=== PATIENT | female | born 1965 | race Caucasian/White ===

== ENCOUNTER 2016-05-19 14:19 | Emergency (ER) | payer SELFPAY ==
[2016-05-19 14:32] VITALS: TEMP 98.3
[2016-05-19] MEDS ORDERED: IPRATROPIUM/ALBUTEROL 3 ML VIAL NEB ONE (14:37)
--- NOTE | 2016-05-19 14:41 | ED.PDOC ---
History of Present Illness - General Chief Complaint: Respiratory Problem Stated Complaint: cough, sob Time Seen by Provider: 05/19/16 14:29 Source: patient, RN notes reviewed, Vital Signs reviewed Exam Limitations: no limitations - History of Present Illness Initial Comments: Patient comes in with 2 days history of cough and worsening SOB. She has underlying SOB due to L lung removal due to cancer but it has worsened over the past 2 days. Feeling some tightness in her chest. Timing/Duration: 24 hours Severity: moderate Activities at Onset: activity Possible Cause: frequent episodes, illness exposure Improving Factors: medication, rest Worsening Factors: movement Associated Symptoms: cough, other - chills Respiratory Risk Factors: no cause identified Allergies/Adverse Reactions: Allergies Gabapentin [From Neurontin] Allergy (Verified 05/19/16 14:32) Rash Home Medications: Ambulatory Orders Albuterol Inhaler [Ventolin Hfa Inhaler] 1 puff INH Q6H PRN 11/12/15 Alprazolam [Xanax] 1 mg PO TID PRN 11/12/15 Aspirin [Aspirin Adult Low Dose] 81 mg PO DAILY 11/12/15 Citalopram Hydrobromide 40 mg PO DAILY 11/12/15 Furosemide [Lasix] 20 mg PO QAM #30 tab 11/12/15 Lisinopril 2.5 mg PO DAILY 11/12/15 Promethazine Tab [Phenergan Tablet] 25 mg PO .Q4H PRN #0 11/12/15 metFORMIN HCL [Glucophage] 250 mg PO BID 11/12/15 Acetaminophen [Tylenol] 500 mg PO .Q6H PRN #60 tab 03/16/16 Dextromethorphan-Guaifenesin [Mucinex Dm Maximum Streng 60-1200 mg] 1 tab PO ACHS #30 tab 03/16/16 Azithromycin [Zithromax Z-Titus] 1 ea PO DAILY #1 pack 05/19/16 Ipratropium/Albuterol [Duoneb] 3 ml NEB Q4HR PRN #25 vial 05/19/16 Prednisone 10 mg PO DAILY #30 titus 05/19/16 Review of Systems - Review of Systems Constitutional: States: chills. Denies: fever, malaise, weakness EENTM: States: no symptoms reported. Denies: ear pain, nose congestion, throat pain Respiratory: States: cough, short of breath, other - LY[facility] Cardiology: States: chest pain - Tightness. Denies: palpitations, syncope Gastrointestinal/Abdominal: States: no symptoms reported Genitourinary: States: no symptoms reported Musculoskeletal: States: muscle pain Skin: States: no symptoms reported Neurological: States: no symptoms reported. Denies: headache Endocrine: States: no symptoms reported Hematologic/Lymphatic: States: no symptoms reported Past Medical History (General) - Patient Medical History Hx Seizures: No Hx Stroke: No Hx Dementia: No Hx Asthma: No Hx of COPD: No Hx Cardiac Disorders: No Hx Congestive Heart Failure: No Hx Pacemaker: No Hx Hypertension: Yes Hx Thyroid Disease: No Hx Diabetes: Yes Hx Gastroesophageal Reflux: No Hx Renal Disease: No Hx Cancer: Yes - lung CA Hx of HIV: No Hx MRSA: No Surgical History: other - Vaccination History Hx Tetanus, Diphtheria Vaccination: Yes Hx Influenza Vaccination: No Hx Pneumococcal Vaccination: Yes - 01/2015 - Social History Hx Tobacco Use: Yes Hx Alcohol Use: No Hx Substance Use: No Hx Substance Use Treatment: No Hx Depression: No - Activities of Daily Living Hospice Agency (if applicable):: None - Female History Patient is a Female of Child Bearing Age (10 -59 yrs old): No Patient : No Family Medical History - Family History Mother Family History: No Known Living Status: Still Living Hx Family Hypertension: Yes Hx Cardiac Disease: Yes Hx Family Cancer: Yes - rectal Physical Exam - Physical Exam General Appearance: Alert, Comfortable, No apparent distress, Well Developed, Well Groomed, Well Hydrated, Well Nourished Neck: non-tender, full range of motion, supple, normal inspection Respiratory: chest non-tender, no respiratory distress, no accessory muscle use , decreased breath sounds - at bases but otherwise CTA Cardiovascular/Chest: regular rate, rhythm, no edema, no gallop, no JVD, no murmur Extremity: normal range of motion, non-tender, normal inspection, no pedal edema Neurologic: no motor/sensory deficits, alert, normal mood/affect, oriented x 3 Skin Exam: normal color, warm/dry Lymphatic: no adenopathy Progress - Progress Progress: 05/19/16 15:08 Feeling better after neb treatment. 05/19/16 15:31 Discussed lab and x-ray results. Discussed that most of the time bronchitis is viral and does not require antibiotics. Discussed will give script if new or worsening symptoms occur given that she is a smoker. - Results/Orders Results/Orders: Influenza A & B are negative. - EKG/XRAY/CT XRAY: chest - Stable, no acute changes per Radiologist Departure - Departure Clinical Impression: Bronchitis Time of Disposition: 15:33 Disposition: Discharge to Home or Self Care Condition: Good Departure Forms: ED Discharge - Pt. Copy, Patient Portal Self Enrollment Instructions: DI for Acute Bronchitis Diet: resume usual diet Activity: increase activity as tolerated Prescriptions: Ipratropium/Albuterol [Duoneb] 3 ml NEB Q4HR PRN #25 vial PRN Reason: Shortness Of Breath Prednisone 10 mg PO DAILY #30 titus Azithromycin [Zithromax Z-Titus] 1 ea PO DAILY #1 pack Home Medications: Ambulatory Orders Albuterol Inhaler [Ventolin Hfa Inhaler] 1 puff INH Q6H PRN 11/12/15 Alprazolam [Xanax] 1 mg PO TID PRN 11/12/15 Aspirin [Aspirin Adult Low Dose] 81 mg PO DAILY 11/12/15 Citalopram Hydrobromide 40 mg PO DAILY 11/12/15 Furosemide [Lasix] 20 mg PO QAM #30 tab 11/12/15 Lisinopril 2.5 mg PO DAILY 11/12/15 Promethazine Tab [Phenergan Tablet] 25 mg PO .Q4H PRN #0 11/12/15 metFORMIN HCL [Glucophage] 250 mg PO BID 11/12/15 Acetaminophen [Tylenol] 500 mg PO .Q6H PRN #60 tab 03/16/16 Dextromethorphan-Guaifenesin [Mucinex Dm Maximum Streng 60-1200 mg] 1 tab PO ACHS #30 tab 03/16/16 Azithromycin [Zithromax Z-Titus] 1 ea PO DAILY #1 pack 05/19/16 Ipratropium/Albuterol [Duoneb] 3 ml NEB Q4HR PRN #25 vial 05/19/16 Prednisone 10 mg PO DAILY #30 titus 05/19/16
--- NOTE | 2016-05-19 15:14 | RAD ---
EXAM DESCRIPTION: Chest,2 Views CLINICAL HISTORY: 51 years Female, cough/SOB HX L lung removal COMPARISON: November 12, 2015 FINDINGS: Two view chest x-ray shows evidence of left pneumonectomy with complete opacification of the left hemithorax stable from previous exam. There is hyperinflation of the right lung. No acute infiltrate or consolidation is seen. No pleural effusion is identified. Left subclavian Mediport is again seen in good positioning. IMPRESSION: Stable chest x-ray in patient with history of left pneumonectomy. 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
[2016-05-19] MEDS ORDERED: methylPREDNISolone SODIUM SUC 125 MG/2 ML VIAL IM ONE (15:26)
[2016-05-19 15:54] VITALS: BP 106/72; O2SAT 97
== END 2016-05-19 15:54 | disposition home or self-care (01) ==
LOC: ER 14:19
DX: J40 Bronchitis, not specified as acute or chronic (principal); I10 Essential (primary) hypertension; E11.9 Type 2 diabetes mellitus without complications; Z88.8 Allergy status to other drugs, medicaments and biological substances; Z79.82 Long term (current) use of aspirin; Z79.899 Other long term (current) drug therapy; Z87.891 Personal history of nicotine dependence
CPT/HCPCS: 71020; 87502; 94640; J2930; J7620

== ENCOUNTER 2016-08-11 20:16 | Emergency (ER) | payer SELFPAY ==
[2016-08-11 20:47] VITALS: TEMP 99
--- NOTE | 2016-08-11 20:48 | ED.PDOC ---
History of Present Illness - General Stated Complaint: left neck and arm pain Time Seen by Provider: 08/11/16 20:32 Source: patient Exam Limitations: no limitations - History of Present Illness Initial Comments: Patient is NIDDM, s/p left pulminectomy due to lung CA ( last chemo one year ago ), hyperlipidemia who presents with left neck, arm, and hand pain. The neck and arm pain have been going on for about one month and the hand pain is more recent , however, in the last two days she says that she "can't stand it anymore". The pain is diffusely around the hand and she claims to not be able to move it. She took a tylenol 3 yesterday. Patient's family has an extensive cardiac history. Timing/Duration: changing over time, other - one month Severity: moderate Improving Factors: nothing Worsening Factors: nothing Associated Symptoms: denies symptoms Allergies/Adverse Reactions: Allergies Gabapentin [From Neurontin] Allergy (Verified 08/11/16 20:47) Rash Home Medications: Ambulatory Orders Albuterol Inhaler [Ventolin Hfa Inhaler] 1 puff INH Q6H PRN 11/12/15 Alprazolam [Xanax] 1 mg PO TID PRN 11/12/15 Aspirin [Aspirin Adult Low Dose] 81 mg PO DAILY 11/12/15 Citalopram Hydrobromide 40 mg PO DAILY 11/12/15 Furosemide [Lasix] 20 mg PO QAM #30 tab 11/12/15 Lisinopril 2.5 mg PO DAILY 11/12/15 Promethazine Tab [Phenergan Tablet] 25 mg PO .Q4H PRN #0 11/12/15 metFORMIN HCL [Glucophage] 250 mg PO BID 11/12/15 Acetaminophen [Tylenol] 500 mg PO .Q6H PRN #60 tab 03/16/16 Dextromethorphan-Guaifenesin [Mucinex Dm Maximum Streng 60-1200 mg] 1 tab PO ACHS #30 tab 03/16/16 Azithromycin [Zithromax Z-Titus] 1 ea PO DAILY #1 pack 05/19/16 Ipratropium/Albuterol [Duoneb] 3 ml NEB Q4HR PRN #25 vial 05/19/16 Prednisone 10 mg PO DAILY #30 titus 05/19/16 Cyclobenzaprine HCl [Flexeril] 5 mg PO TID #20 tab 08/11/16 Review of Systems - Review of Systems Constitutional: States: no symptoms reported EENTM: States: no symptoms reported Respiratory: States: see HPI Cardiology: States: no symptoms reported Gastrointestinal/Abdominal: States: no symptoms reported Genitourinary: States: no symptoms reported Musculoskeletal: States: see HPI Skin: States: no symptoms reported Neurological: States: see HPI Endocrine: States: see HPI Hematologic/Lymphatic: States: no symptoms reported Past Medical History (General) - Patient Medical History Hx Seizures: No Hx Stroke: No Hx Dementia: No Hx Asthma: No Hx of COPD: No Hx Cardiac Disorders: No Hx Congestive Heart Failure: No Hx Pacemaker: No Hx Hypertension: Yes Hx Thyroid Disease: No Hx Diabetes: Yes Hx Gastroesophageal Reflux: No Hx Renal Disease: No Hx Cancer: Yes - lung CA Hx of HIV: No Hx MRSA: No - Vaccination History Hx Tetanus, Diphtheria Vaccination: Yes Hx Influenza Vaccination: No Hx Pneumococcal Vaccination: Yes - 01/2015 - Social History Hx Tobacco Use: Yes Hx Alcohol Use: No Hx Substance Use: No Hx Substance Use Treatment: No Hx Depression: No - Female History Patient : No Family Medical History - Family History Mother Family History: No Known Living Status: Still Living Hx Family Hypertension: Yes Hx Cardiac Disease: Yes Hx Family Cancer: Yes - rectal Physical Exam - Physical Exam General Appearance: Alert Eye Exam: bilateral normal Ears, Nose, Throat: normal ENT inspection Neck: non-tender, full range of motion, supple Respiratory: normal breath sounds, other - absent left lung Cardiovascular/Chest: regular rate, rhythm Gastrointestinal/Abdominal: normal bowel sounds, non tender, soft Extremity: normal range of motion, non-tender 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 No LBBB. Cardiac enzymes negative. Patient given flexeril 10 mg po x one and an RX for #20. Referral number for neurology given. Departure - Departure Clinical Impression: Neck sprain Disposition: Discharge to Home or Self Care Condition: Good Diet: other - as per your regular doctor Activity: increase activity as tolerated Referrals: Jessica Ramos NP [Primary Care Provider] - 1-2 Weeks Prescriptions: Cyclobenzaprine HCl [Flexeril] 5 mg PO TID #20 tab Home Medications: Ambulatory Orders Albuterol Inhaler [Ventolin Hfa Inhaler] 1 puff INH Q6H PRN 11/12/15 Alprazolam [Xanax] 1 mg PO TID PRN 11/12/15 Aspirin [Aspirin Adult Low Dose] 81 mg PO DAILY 11/12/15 Citalopram Hydrobromide 40 mg PO DAILY 11/12/15 Furosemide [Lasix] 20 mg PO QAM #30 tab 11/12/15 Lisinopril 2.5 mg PO DAILY 11/12/15 Promethazine Tab [Phenergan Tablet] 25 mg PO .Q4H PRN #0 11/12/15 metFORMIN HCL [Glucophage] 250 mg PO BID 11/12/15 Acetaminophen [Tylenol] 500 mg PO .Q6H PRN #60 tab 03/16/16 Dextromethorphan-Guaifenesin [Mucinex Dm Maximum Streng 60-1200 mg] 1 tab PO ACHS #30 tab 03/16/16 Azithromycin [Zithromax Z-Titus] 1 ea PO DAILY #1 pack 05/19/16 Ipratropium/Albuterol [Duoneb] 3 ml NEB Q4HR PRN #25 vial 05/19/16 Prednisone 10 mg PO DAILY #30 titus 05/19/16 Cyclobenzaprine HCl [Flexeril] 5 mg PO TID #20 tab 08/11/16 Additional Instructions: Follow up with neurology regarding the left arm pain.
[2016-08-11] MEDS ORDERED: CYCLOBENZAPRINE HCL 10 MG TAB PO ONE (21:17)
[2016-08-11 21:18] VITALS: O2SAT 100
[2016-08-11] MEDS ORDERED: CYCLOBENZAPRINE HCL 10 MG TAB ONE (21:18)
--- NOTE | 2016-08-11 21:19 | RAD ---
EXAM DESCRIPTION: Chest,1 View CLINICAL HISTORY: 51 years Female left sided pain COMPARISON: 05/19/2016. FINDINGS: The heart and mediastinum are shifted into the left hemithorax consistent with changes from previous pneumonectomy. This appears similar compared to the previous study. There is hyperinflation of the right lung again visualized. No definite consolidating infiltrate or pleural effusion. No pneumothorax. There is a stable left chest port. IMPRESSION: Shift of the heart and mediastinum into the left chest consistent with changes from previous pneumonectomy. No acute abnormality is identified. Electronically signed by: Shayan Chinchilla MD 08/11/2016 9:18 PM CDT
[2016-08-11 21:24] VITALS: BP 156/89
== END 2016-08-11 21:24 | disposition home or self-care (01) ==
LOC: ER 20:16
DX: S13.9XXA Sprain of joints and ligaments of unspecified parts of neck, initial encounter (principal); E78.5 Hyperlipidemia, unspecified; I10 Essential (primary) hypertension; E11.9 Type 2 diabetes mellitus without complications; Z88.8 Allergy status to other drugs, medicaments and biological substances; Z85.118 Personal history of other malignant neoplasm of bronchus and lung; Z79.82 Long term (current) use of aspirin; Z87.891 Personal history of nicotine dependence; Z79.899 Other long term (current) drug therapy; X58.XXXA Exposure to other specified factors, initial encounter

== ENCOUNTER 2016-09-10 15:44 | Emergency (ER) | payer SELFPAY ==
--- NOTE | 2016-09-10 16:03 | ED.PDOC ---
History of Present Illness - General Chief Complaint: Abdominal Pain Stated Complaint: abdominal pain Time Seen by Provider: 09/10/16 15:49 Information Source: patient, RN notes reviewed, Vital Signs reviewed Exam Limitations: no limitations - History of Present Illness Initial Comments: Patient presents to the ER with sharp LLQ pain that is worse with coughing and movement. She had 2 days of diarrhea with nausea and low grade fever, 100 degrees. That resolved yesterday but then the abdominal pain started. No urinary symptoms. Abdominal Pain Onset Location: LLQ Pain Radiation: no radiation Quality: moderate, stabbing Timing/Duration: 24 hours Improving Factors: nothing Worsening Factors: movement Associated Symptoms: diarrhea, fever/chills, nausea/vomiting Review of Systems - Review of Systems Constitutional: States: chills, fever - 100.0, malaise EENTM: States: no symptoms reported Respiratory: States: no symptoms reported Cardiology: States: no symptoms reported Gastrointestinal/Abdominal: States: see HPI, abdominal pain - LLQ, diarrhea, nausea. Denies: constipation, vomiting Genitourinary: States: no symptoms reported. Denies: discharge, dysuria, frequency, pain Musculoskeletal: States: no symptoms reported Skin: States: no symptoms reported Neurological: States: no symptoms reported Endocrine: States: no symptoms reported Hematologic/Lymphatic: States: no symptoms reported Past Medical History (General) - Patient Medical History Hx Seizures: No Hx Stroke: No Hx Dementia: No Hx Asthma: No Hx of COPD: No Hx Cardiac Disorders: No Hx Congestive Heart Failure: No Hx Pacemaker: No Hx Hypertension: Yes Hx Thyroid Disease: No Hx Diabetes: Yes Hx Gastroesophageal Reflux: No Hx Renal Disease: No Hx Cancer: Yes - lung CA Hx of HIV: No Hx Hepatitis C: No Hx MRSA: No - Vaccination History Hx Tetanus, Diphtheria Vaccination: Yes Hx Influenza Vaccination: No Hx Pneumococcal Vaccination: Yes - 01/2015 - Social History Hx Tobacco Use: Yes Hx Chewing Tobacco Use: No Hx Alcohol Use: No Hx Substance Use: No Hx Substance Use Treatment: No Hx Depression: No Hx Physical Abuse: No Hx Emotional Abuse: No Hx Suspected Abuse: No - Female History Patient : No Family Medical History - Family History Mother Family History: No Known Living Status: Still Living Hx Family Hypertension: Yes Hx Cardiac Disease: Yes Hx Family Cancer: Yes - rectal Physical Exam - Physical Exam General Appearance: Alert, Comfortable, No apparent distress, Well Developed, Well Groomed, Well Hydrated, Well Nourished Respiratory: chest non-tender, lungs clear, normal breath sounds, no respiratory distress, no accessory muscle use Cardiovascular/Chest: regular rate, rhythm, no gallop, no JVD, no murmur Gastrointestinal/Abdominal: normal bowel sounds, soft, no organomegaly, no pulsatile mass, rebound - LLQ, tenderness - LLQ Extremity: normal range of motion, non-tender, normal inspection Neurologic: alert, normal mood/affect, oriented x 3 Skin Exam: normal color, warm/dry Comments: Vital Signs - 24 hr 09/10/16 15:55 Temperature 98.7 F Pulse Rate [ 86 right brachial] Respiratory 86 H Rate Blood Pressure 118/78 [right brachial ] O2 Sat by Pulse 97 Oximetry Progress - Results/Orders Results/Orders: Laboratory Tests 09/10/16 09/10/16 16:15 16:15 WBC 7.3 RBC 4.50 Hgb 14.5 Hct 41.2 MCV 91.4 MCH 32.2 H MCHC 35.2 RDW 13.4 Plt Count 254 MPV 7.4 Absolute Neuts (auto) 5.30 Absolute Lymphs (auto) 0.90 L Absolute Monos (auto) 0.80 Absolute Eos (auto) 0.10 Absolute Basos (auto) 0.00 Neutrophils % 73.2 Lymphocytes % 12.6 L Monocytes % 11.6 H Eosinophils % 1.9 Basophils % 0.7 Sodium 128 L Potassium 3.9 Chloride 93 L Carbon Dioxide 25 Anion Gap 13.9 BUN 9 Creatinine 0.73 BUN/Creatinine Ratio 12.3 Random Glucose 97 Serum Osmolality 255.7 L Calcium 9.4 Total Bilirubin 0.4 AST 12 ALT 12 Alkaline Phosphatase 96 Serum Total Protein 7.7 Albumin 4.4 Globulin 3.3 Albumin/Globulin Ratio 1.3 - EKG/XRAY/CT CT Ordered: Yes - nondilated, fluid filled loops of R small bowel & R colon - enterocolitis CT Interpretation Call Back: No - No inflammation or bowel wall thickening. Departure - Departure Clinical Impression: Gastroenteritis, Diarrhea Time of Disposition: 17:35 Disposition: Discharge to Home or Self Care Condition: Good Departure Forms: ED Discharge - Pt. Copy, Patient Portal Self Enrollment Instructions: DI for Viral Gastroenteritis -- Adult Diet: resume usual diet Activity: increase activity as tolerated Referrals: Jessica Ramos NP [Primary Care Provider] - 1-2 Weeks Home Medications: Ambulatory Orders Albuterol Inhaler [Ventolin Hfa Inhaler] 1 puff INH Q6H PRN 11/12/15 Alprazolam [Xanax] 1 mg PO TID PRN 11/12/15 Aspirin [Aspirin Adult Low Dose] 81 mg PO DAILY 11/12/15 Citalopram Hydrobromide 40 mg PO DAILY 11/12/15 Furosemide [Lasix] 20 mg PO QAM #30 tab 11/12/15 Lisinopril 2.5 mg PO DAILY 11/12/15 Promethazine Tab [Phenergan Tablet] 25 mg PO .Q4H PRN #0 11/12/15 metFORMIN HCL [Glucophage] 250 mg PO BID 11/12/15 Acetaminophen [Tylenol] 500 mg PO .Q6H PRN #60 tab 03/16/16 Dextromethorphan-Guaifenesin [Mucinex Dm Maximum Streng 60-1200 mg] 1 tab PO ACHS #30 tab 03/16/16 Azithromycin [Zithromax Z-Titus] 1 ea PO DAILY #1 pack 05/19/16 Ipratropium/Albuterol [Duoneb] 3 ml NEB Q4HR PRN #25 vial 05/19/16 Prednisone 10 mg PO DAILY #30 titus 05/19/16 Cyclobenzaprine HCl [Flexeril] 5 mg PO TID #20 tab 08/11/16
[2016-09-10 16:10] VITALS: TEMP 98.7
[2016-09-10] MEDS ORDERED: SODIUM CHLORIDE 0.9% 1000ML 1,000 ML IVS ONE (16:47)
--- NOTE | 2016-09-10 16:54 | CT ---
EXAM DESCRIPTION: CT ABDOMEN AND PELVIS WITH CONTRAST CLINICAL HISTORY: LLQ pain/diarrhea COMPARISON: None Available. TECHNIQUE: CT of the abdomen and pelvis was performed using nonionic contrast without oral contrast enhancement. MPR reformatted images were obtained. This exam was performed according to our departmental dose-optimization program, which includes automated exposure control, adjustment of the mA and/or kV according to patient size and/or use of iterative reconstruction technique. FINDINGS: Right lung base appears hyperexpanded but clear and the heart is shifted into the left lower hemithorax with what appears to be a small amount of pleural fluid suggesting previous left pneumonectomy or lobectomy. The liver is normal in size shape and appearance without focal abnormality in the spleen is upper normal in size and normal in appearance. The adrenal glands are unremarkable and the gallbladder is normally distended without ductal dilation. Within the neck of the gallbladder there are two small areas of curvilinear calcification both of which appear to be within the wall of the gallbladder rather than representing small stones. No ductal dilation is evident. Pancreas is normal in appearance. At the lung bases the esophagus appears to track into the left posterior chest, again consistent with a prior left pneumonectomy or lobectomy. Right kidney is unremarkable without mass cyst or obstruction or stone disease. There is a small subcentimeter cyst in the upper pole of the left kidney medially with an otherwise normal-appearing left kidney as well aortic calcification without aneurysm is present without significant mesenteric or retroperitoneal adenopathy. No evidence of bowel obstruction is noted. Fluid-filled loops of distal small bowel and to some degree involving the right colon suggests an element of enterocolitis but without marked bowel wall thickening. Within the pelvis the uterus is surgically absent and no adnexal mass is seen. The descending colon is decompressed with an air-filled loop of mid sigmoid colon anteriorly that is nonspecific with a small amount of gas and stool noted in the distal rectum. The cecum and ileocecal valve are identified but the appendix is not identified but a definite inflammatory process in the right lower quadrant or left lower quadrant or evidence of perforation is not apparent. The anterior abdominal wall is unremarkable. Mild degenerative changes in the spine and pelvis are noted without destructive changes. IMPRESSION: 1. Abnormal left lung base with shift of the heart mediastinum into the left chest suggesting prior left pneumonectomy or lobectomy with a small amount of left pleural fluid. 2. Small amount of curvilinear calcification associated with the gallbladder neck that appears to be within the wall and not within the lumen. Gallstones are not completely excluded but thought unlikely with this appearance. No ductal dilatation or acute changes of cholecystitis noted 3. Fluid-filled nondilated loops of distal small bowel and right colon consistent with the history of diarrhea and possibly an enterocolitis. Bowel wall thickening or perforation or mesenteric inflammatory changes are not apparent Electronically signed by: Poli Bess MD 09/10/2016 4:54 PM CDT
[2016-09-10 17:17] VITALS: O2SAT 96
[2016-09-10 17:42] VITALS: BP 122/74
[2016-09-10] MEDS ORDERED: LIDOCAINE VIS-MYLANTA 30 ML UD PO ONE (17:49)
== END 2016-09-10 17:44 | disposition home or self-care (01) ==
LOC: ER 15:44
DX: K52.9 Noninfective gastroenteritis and colitis, unspecified (principal); I10 Essential (primary) hypertension; E11.9 Type 2 diabetes mellitus without complications; Z85.118 Personal history of other malignant neoplasm of bronchus and lung; Z79.899 Other long term (current) drug therapy; Z79.82 Long term (current) use of aspirin
CPT/HCPCS: 36415; 74177; 80053; 81001; 85025; J7030

== ENCOUNTER → 2016-09-26 | Outpatient (CLI) | payer MEDICARE | END | disposition home or self-care (01) | LOC: YCFC.O 14:23 | PROVIDERS: ATTEND Nurse Practitioner Family | DX: E78.2 Mixed hyperlipidemia (principal); E11.9 Type 2 diabetes mellitus without complications ==

== ENCOUNTER 2017-03-08 19:52 | Emergency (ER) | payer MEDICARE ==
[2017-03-08 20:10] VITALS: TEMP 99.7
[2017-03-08] MEDS ORDERED: ACETAMINOPHEN 325 MG TAB PO ONE (20:55)
[2017-03-08] MEDS ORDERED: IBUPROFEN 200 MG TAB PO ONE (20:55)
--- NOTE | 2017-03-08 20:59 | ED.PDOC ---
History of Present Illness - General Chief Complaint: ENT Problem Stated Complaint: sore throat, cough, sinus pressure, headache Time Seen by Provider: 03/08/17 20:04 Source: patient Exam Limitations: no limitations - History of Present Illness Initial Comments: the patient is a 51-year-old female presenting to the emergency room secondary to 24 hours of symptoms of sore throat along with a cough and some runny nose and a mild headache. She has had a lung resection in the past due to cancer and she does have some reactive airway disease. She is oxygenating well and in no acute distress. She is alert and oriented. She is eating well. Tympanic membranes are clear. Nares are reddened with clear rhinorrhea. Posterior oropharynx is red. No exudates. She is clear to auscultation bilaterally. Timing/Duration: 24 hours Severity: moderate Improving Factors: nothing Worsening Factors: nothing Associated Symptoms: cough, fever/chills, malaise Allergies/Adverse Reactions: Allergies Gabapentin [From Neurontin] Allergy (Verified 03/08/17 20:36) Rash Home Medications: Ambulatory Orders Aspirin [Aspirin Adult Low Dose] 81 mg PO DAILY 11/12/15 Citalopram Hydrobromide 40 mg PO DAILY 11/12/15 Lisinopril 2.5 mg PO DAILY 11/12/15 metFORMIN HCL [Glucophage] 250 mg PO BID 11/12/15 Hydrochlorothiazide 12.5 mg PO DAILY 09/10/16 Loratadine 10 mg PO DAILY PRN 09/10/16 Amitriptyline HCl [Elavil] 25 mg PO BEDTIME 03/08/17 Cyclobenzaprine HCl [Flexeril] 5 mg PO TID PRN 03/08/17 Lovastatin 20 mg PO DAILY 03/08/17 Review of Systems - Review of Systems Constitutional: States: fever, malaise EENTM: States: nose congestion, throat pain Respiratory: States: cough Cardiology: States: no symptoms reported Gastrointestinal/Abdominal: States: no symptoms reported Genitourinary: States: no symptoms reported Musculoskeletal: States: no symptoms reported Skin: States: no symptoms reported Neurological: States: no symptoms reported Endocrine: States: no symptoms reported All other Systems: No Change from Baseline Past Medical History (General) - Patient Medical History Hx Seizures: No Hx Stroke: No Hx Dementia: No Hx Asthma: No Hx of COPD: No Hx Cardiac Disorders: No Hx Congestive Heart Failure: No Hx Pacemaker: No Hx Hypertension: Yes Hx Thyroid Disease: No Hx Diabetes: Yes Hx Gastroesophageal Reflux: Yes Hx Renal Disease: No Hx Cancer: Yes - lung CA Hx of HIV: No Hx Hepatitis C: No Hx MRSA: No Surgical History: appendectomy, cancer surgery, Hysterectomy - Vaccination History Hx Tetanus, Diphtheria Vaccination: Yes Hx Influenza Vaccination: No Hx Pneumococcal Vaccination: Yes - 01/2015 - Social History Hx Tobacco Use: Yes Hx Chewing Tobacco Use: No Hx Alcohol Use: No Hx Substance Use: No Hx Substance Use Treatment: No Hx Depression: No Hx Physical Abuse: No Hx Emotional Abuse: No Hx Suspected Abuse: No - Female History Patient : No Family Medical History - Family History Mother Family History: No Known Living Status: Still Living Hx Family Hypertension: Yes Hx Cardiac Disease: Yes Hx Family Cancer: Yes - rectal Physical Exam - Physical Exam General Appearance: Alert, Comfortable, No apparent distress Eye Exam: bilateral normal Ears, Nose, Throat: hearing grossly normal, nasal congestion, pharyngeal erythema Neck: full range of motion, supple Respiratory: other - normal breath sounds on the right, decreased on the left due to lung resection Cardiovascular/Chest: normal peripheral pulses, regular rate, rhythm, no edema Peripheral Pulses: radial,right: 2+, radial,left: 2+, dorsalis pedis,right: 2+, dorsalis pedis,left: 2+ Gastrointestinal/Abdominal: non tender, soft Rectal Exam: deferred Back Exam: no CVA tenderness Extremity: non-tender, normal inspection, no pedal edema, normal capillary refill 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 She has tested negative for strep and flu. She needs to keep well-hydrated. Motrin and Tylenol can be used to reduce symptoms. She should follow-up with her primary care doctor later this week given her history of a lung resection. ER warnings are given for any worsening. Continue as needed use of her nebulizer treatments. Departure - Departure Clinical Impression: Common cold Disposition: Discharge to Home or Self Care Condition: Fair Departure Forms: ED Discharge - Pt. Copy, Patient Portal Self Enrollment Instructions: DI for Common Cold Diet: regular diet Activity: increase activity as tolerated Referrals: Doretha Hodge, [employer] [Primary Care Provider] - 1-5 Days Home Medications: Ambulatory Orders Aspirin [Aspirin Adult Low Dose] 81 mg PO DAILY 11/12/15 Citalopram Hydrobromide 40 mg PO DAILY 11/12/15 Lisinopril 2.5 mg PO DAILY 11/12/15 metFORMIN HCL [Glucophage] 250 mg PO BID 11/12/15 Hydrochlorothiazide 12.5 mg PO DAILY 09/10/16 Loratadine 10 mg PO DAILY PRN 09/10/16 Amitriptyline HCl [Elavil] 25 mg PO BEDTIME 03/08/17 Cyclobenzaprine HCl [Flexeril] 5 mg PO TID PRN 03/08/17 Lovastatin 20 mg PO DAILY 03/08/17 Additional Instructions: the patient is a 51-year-old female presenting secondary to symptoms consistent with a common cold. She has tested negative for strep and flu. She needs to keep well-hydrated. Motrin and Tylenol can be used to reduce symptoms. She should follow-up with her primary care doctor later this week given her history of a lung resection. ER warnings are given for any worsening. Continue as needed use of her nebulizer treatments.
[2017-03-08 21:14] VITALS: BP 122/82; O2SAT 98
== END 2017-03-08 21:14 | disposition home or self-care (01) ==
LOC: ER 19:52
DX: J00 Acute nasopharyngitis [common cold] (principal); E11.9 Type 2 diabetes mellitus without complications; I10 Essential (primary) hypertension; Z85.118 Personal history of other malignant neoplasm of bronchus and lung

== ENCOUNTER → 2017-03-20 | Outpatient (CLI) | payer MEDICARE ==
--- NOTE | 2017-03-21 23:02 | RAD ---
Procedure: XR CHEST 2 VIEWS Exam Date: 03/20/2017 Ordering Provider: LUIS Hodge Clinical Indication: SOB Comparison: 08/11/2016 Findings: Left chest portacatheter with tip stable in position. Cardiomediastinal silhouette: Postsurgical changes of left pneumonectomy with leftward mediastinal shift, similar to prior. Focal lung consolidation: No focal lung consolidation. Pleural effusion: No significant pleural effusion. Pneumothorax: None Bones and soft tissues: Nonacute Impression: 1. No acute abnormalities in the chest. Electronically signed by: Angel Jerez MD 03/21/2017 11:00 PM [facility]
== END | disposition home or self-care (01) ==
LOC: YCFC.O 16:17
PROVIDERS: ATTEND Nurse Practitioner Family
DX: R06.02 Shortness of breath (principal)

== ENCOUNTER 2017-04-05 20:15 | Emergency (ER) | payer MEDICARE ==
--- NOTE | 2017-04-05 21:35 | ED.PDOC ---
History of Present Illness - General Chief Complaint: General Stated Complaint: Productive cough yellowish sputum rt ear ache Time Seen by Provider: 04/05/17 21:34 Source: patient Exam Limitations: no limitations - History of Present Illness Initial Comments: Tarah White 51 y/o female came to emergency room with dry cough for the last 1-2 weeks ,.She wqas prescribed antibiotics last week but stating not better cough continue to linger.No fever ,no chills,no sob Timing/Duration: 1 week Severity: moderate Improving Factors: nothing Worsening Factors: nothing Associated Symptoms: shortness of breath - during coughing episodes Allergies/Adverse Reactions: Allergies Gabapentin [From Neurontin] Allergy (Verified 04/05/17 20:56) Rash Home Medications: Ambulatory Orders Aspirin [Aspirin Adult Low Dose] 81 mg PO DAILY 11/12/15 Citalopram Hydrobromide 40 mg PO DAILY 11/12/15 Lisinopril 2.5 mg PO DAILY 11/12/15 metFORMIN HCL [Glucophage] 250 mg PO BID 11/12/15 Hydrochlorothiazide 12.5 mg PO DAILY 09/10/16 Loratadine 10 mg PO DAILY PRN 09/10/16 Amitriptyline HCl [Elavil] 25 mg PO BEDTIME 03/08/17 Cyclobenzaprine HCl [Flexeril] 5 mg PO TID PRN 03/08/17 Lovastatin 20 mg PO DAILY 03/08/17 Benzonatate Perles [Tessalon Perles] 200 mg PO TID #30 cap 04/05/17 Review of Systems - Review of Systems Constitutional: States: no symptoms reported EENTM: States: see HPI Respiratory: States: see HPI Cardiology: States: no symptoms reported Gastrointestinal/Abdominal: States: no symptoms reported Genitourinary: States: no symptoms reported Musculoskeletal: States: no symptoms reported Skin: States: no symptoms reported Neurological: States: no symptoms reported Past Medical History (General) - Patient Medical History Hx Seizures: No Hx Stroke: No Hx Dementia: No Hx Asthma: Yes Hx of COPD: No Hx Cardiac Disorders: No Hx Congestive Heart Failure: No Hx Pacemaker: No Hx Hypertension: Yes Hx Thyroid Disease: No Hx Diabetes: Yes Hx Gastroesophageal Reflux: Yes Hx Renal Disease: No Hx Cancer: Yes - vagina/lungs Hx of HIV: No Hx Hepatitis C: No Hx MRSA: No Surgical History: appendectomy, Hysterectomy, other - vulvectomy,lung resection - Vaccination History Hx Tetanus, Diphtheria Vaccination: Yes Hx Influenza Vaccination: No Hx Pneumococcal Vaccination: Yes - Social History Hx Tobacco Use: Yes Hx Chewing Tobacco Use: No Hx Alcohol Use: No Hx Substance Use: No Hx Substance Use Treatment: No Hx Depression: No Hx Physical Abuse: No Hx Emotional Abuse: No Hx Suspected Abuse: No - Female History Patient is a Female of Child Bearing Age (10 -59 yrs old): Yes - hystectomy Patient : No - Triage Comment ED Triage Comment: Presents to ER--POV--c/o PC with yellowish sputum states-- recent bronchilitis --Rt ear ache--onset yesterday. Family Medical History - Family History Mother Family History: No Known Living Status: Still Living Hx Family Hypertension: Yes Hx Cardiac Disease: Yes Hx Family Cancer: Yes - rectal Physical Exam - Physical Exam General Appearance: Alert, Comfortable, No apparent distress Eye Exam: bilateral normal Ears, Nose, Throat: hearing grossly normal, normal ENT inspection, normal pharynx Neck: non-tender, full range of motion, supple Respiratory: lungs clear, normal breath sounds, no respiratory distress Cardiovascular/Chest: normal peripheral pulses, regular rate, rhythm, no murmur Peripheral Pulses: radial,right: 2+, radial,left: 2+ Gastrointestinal/Abdominal: normal bowel sounds, non tender, soft, no organomegaly Back Exam: normal inspection, no vertebral tenderness Extremity: non-tender, no pedal edema, no calf tenderness Neurologic: alert, oriented x 3 Progress - Progress Progress: 04/05/17 22:25 Last Vital Signs Temp 97.9 F 04/05/17 20:56 Pulse 105 H 04/05/17 20:56 Resp 20 04/05/17 20:56 BP 105/70 04/05/17 20:56 Pulse Ox 96 04/05/17 20:56 - Results/Orders Results/Orders: Laboratory Tests 04/05/17 21:44 WBC 10.7 RBC 4.13 L Hgb 12.8 Hct 37.1 MCV 89.7 MCH 30.9 MCHC 34.6 RDW 14.5 Plt Count 299 MPV 7.0 L Absolute Neuts (auto) 8.30 H Absolute Lymphs (auto) 1.30 Absolute Monos (auto) 0.90 H Absolute Eos (auto) 0.10 Absolute Basos (auto) 0.10 Neutrophils % 77.4 Lymphocytes % 12.2 L Monocytes % 8.0 Eosinophils % 1.3 Basophils % 1.1 FLU A/B -negative - EKG/XRAY/CT XRAY: chest - no acute abnormalities Departure - Departure Clinical Impression: Viral upper respiratory tract infection with cough Time of Disposition: 22:27 Disposition: Discharge to Home or Self Care Condition: Good Departure Forms: ED Discharge - Pt. Copy, Patient Portal Self Enrollment Instructions: DI for Viral Upper Respiratory Infection -- Adult Referrals: Doretha Hodge, [employer] [Primary Care Provider] - 1-2 Weeks Prescriptions: Benzonatate Perles [Tessalon Perles] 200 mg PO TID #30 cap Home Medications: Ambulatory Orders Aspirin [Aspirin Adult Low Dose] 81 mg PO DAILY 11/12/15 Citalopram Hydrobromide 40 mg PO DAILY 11/12/15 Lisinopril 2.5 mg PO DAILY 11/12/15 metFORMIN HCL [Glucophage] 250 mg PO BID 11/12/15 Hydrochlorothiazide 12.5 mg PO DAILY 09/10/16 Loratadine 10 mg PO DAILY PRN 09/10/16 Amitriptyline HCl [Elavil] 25 mg PO BEDTIME 03/08/17 Cyclobenzaprine HCl [Flexeril] 5 mg PO TID PRN 03/08/17 Lovastatin 20 mg PO DAILY 03/08/17 Benzonatate Perles [Tessalon Perles] 200 mg PO TID #30 cap 04/05/17 Additional Instructions: May take over the counter Delsym lquid 2 teaspoons am/pm for cough;Benadryl 25 mg 2 capsules at bedtime
--- NOTE | 2017-04-05 22:10 | RAD ---
EXAM DESCRIPTION: Chest,2 Views CLINICAL HISTORY: cough COMPARISON: 03/20/2017 FINDINGS: Frontal and lateral views of the chest. Cardiac silhouette is not well evaluated due to diffuse left lung opacity. No definite cardiomegaly. Left subclavian Mediport. Unchanged complete opacification of the left hemithorax and leftward mediastinal shift compatible with prior pneumonectomy. Right lung is clear. No right-sided pneumothorax. No acute osseous abnormality. Upper abdominal soft tissues are unremarkable. IMPRESSION: 1. No acute pulmonary process identified. Electronically signed by: Tima White 04/05/2017 10:10 PM [facility]
[2017-04-05] MEDS ORDERED: diphenhydrAMINE HCL 25 MG CAP PO ONE (22:29)
[2017-04-05] MEDS ORDERED: BENZONATATE PERLES 100 MG CAP PO ONE (22:29)
[2017-04-05 22:46] VITALS: TEMP 98.9
[2017-04-05 22:53] VITALS: BP 132/78; O2SAT 98
== END 2017-04-05 22:45 | disposition home or self-care (01) ==
LOC: ER 20:15
DX: J06.9 Acute upper respiratory infection, unspecified (principal); Z87.891 Personal history of nicotine dependence; E11.9 Type 2 diabetes mellitus without complications; I10 Essential (primary) hypertension; Z85.89 Personal history of malignant neoplasm of other organs and systems; Z85.118 Personal history of other malignant neoplasm of bronchus and lung
CPT/HCPCS: 36415; 71046; 85025; 87502; Q0163

== ENCOUNTER 2018-01-23 16:18 | Emergency (ER) | payer MEDICARE ==
[2018-01-23] MEDS ORDERED: methylPREDNISolone SODIUM SUC 125 MG/2 ML VIAL IM ONE (16:28)
[2018-01-23 16:30] VITALS: BP 103/69; TEMP 98.3; O2SAT 97
--- NOTE | 2018-01-23 16:30 | ED.PDOC ---
History of Present Illness - General Chief Complaint: Respiratory Problem Stated Complaint: headache, sinus pressure Time Seen by Provider: 01/23/18 16:28 Source: patient Exam Limitations: no limitations - History of Present Illness Comments: patient comes in today with 4 day history of worsening sinus pressure, nasal congestion, and cough. Patient has a history of hypertension and the most likely underlying COPD. She has breathing treatments for this at home but she does continue to smoke. She has no fever, chills, nausea or vomiting. Patient is primarily concerned about having sinus infections in the past and now having severe headache with sinus pressure and pain on touching the front side of her face. She denies SOB or wheezing. Timing/Duration: week, getting worse Cough Quality/Degree: mild, dry cough Possible Cause: occasional episodes Improving Factors: nothing Worsening Factors: nothing Associated Symptoms: facial pain, nasal congestion Respiratory Risk Factors: no cause identified Allergies/Adverse Reactions: Allergies Gabapentin [From Neurontin] Allergy (Verified 04/05/17 20:56) Rash Home Medications: Ambulatory Orders Aspirin [Aspirin Adult Low Dose] 81 mg PO DAILY 11/12/15 Citalopram Hydrobromide 40 mg PO DAILY 11/12/15 Lisinopril 2.5 mg PO DAILY 11/12/15 metFORMIN HCL [Glucophage] 250 mg PO BID 11/12/15 Hydrochlorothiazide 12.5 mg PO DAILY 09/10/16 Loratadine 10 mg PO DAILY PRN 09/10/16 Amitriptyline HCl [Elavil] 25 mg PO BEDTIME 03/08/17 Cyclobenzaprine HCl [Flexeril] 5 mg PO TID PRN 03/08/17 Lovastatin 20 mg PO DAILY 03/08/17 Benzonatate Perles [Tessalon Perles] 200 mg PO TID #30 cap 04/05/17 Amoxicillin 875 mg PO BID #20 tab 01/23/18 Review of Systems - Review of Systems Constitutional: States: no symptoms reported. Denies: chills, fever EENTM: States: nose congestion. Denies: eye pain, blurred vision, throat pain Respiratory: States: cough. Denies: short of breath, wheezing Cardiology: States: no symptoms reported. Denies: chest pain, edema, palpitations Gastrointestinal/Abdominal: States: no symptoms reported. Denies: abdominal pain, diarrhea, nausea, vomiting Genitourinary: States: no symptoms reported Musculoskeletal: States: no symptoms reported Past Medical History (General) - Patient Medical History Hx Seizures: No Hx Stroke: No Hx Dementia: No Hx Asthma: Yes Hx of COPD: No Hx Cardiac Disorders: No Hx Congestive Heart Failure: No Hx Pacemaker: No Hx Hypertension: Yes Hx Thyroid Disease: No Hx Diabetes: Yes Hx Gastroesophageal Reflux: Yes Hx Renal Disease: No Hx Cancer: Yes - vagina/lungs Hx of HIV: No Hx Hepatitis C: No Hx MRSA: No - Vaccination History Hx Tetanus, Diphtheria Vaccination: Yes Hx Influenza Vaccination: No Hx Pneumococcal Vaccination: Yes - Social History Hx Tobacco Use: Yes Hx Chewing Tobacco Use: No Hx Alcohol Use: No Hx Substance Use: No Hx Substance Use Treatment: No Hx Depression: No Hx Physical Abuse: No Hx Emotional Abuse: No Hx Suspected Abuse: No - Female History Patient : No Family Medical History - Family History Mother Family History: No Known Living Status: Still Living Hx Family Hypertension: Yes Hx Cardiac Disease: Yes Hx Family Cancer: Yes - rectal Physical Exam - Physical Exam General Appearance: Alert, No apparent distress Eye Exam: bilateral normal ENT Exam: hearing grossly normal, TMs normal, pharynx normal, nasal congestion, other - tenderness to palpation bilateral maxillary sinuses Neck: non-tender, full range of motion, supple, normal inspection Respiratory: no respiratory distress, no accessory muscle use, wheezing, other - no crackles, no rhonchi Cardiovascular/Chest: normal peripheral pulses, regular rate, rhythm, no edema, no murmur Gastrointestinal/Abdominal: normal bowel sounds, non tender, soft Neurologic: alert, oriented x 3 Departure - Departure Clinical Impression: Sinusitis Qualifiers: Sinusitis location: maxillary Chronicity: acute Recurrence: not specified as recurrent Qualified Code(s): J01.00 - Acute maxillary sinusitis, unspecified Disposition: Discharge to Home or Self Care Condition: Good Departure Forms: ED Discharge - Pt. Copy, Patient Portal Self Enrollment Diet: resume usual diet Referrals: Doretha Hodge NP [Primary Care Provider] - 1-2 Weeks Prescriptions: Amoxicillin 875 mg PO BID #20 tab Home Medications: Ambulatory Orders Aspirin [Aspirin Adult Low Dose] 81 mg PO DAILY 11/12/15 Citalopram Hydrobromide 40 mg PO DAILY 11/12/15 Lisinopril 2.5 mg PO DAILY 08/22/16 metFORMIN HCL [Glucophage] 250 mg PO BID 11/12/15 Hydrochlorothiazide 12.5 mg PO DAILY 09/10/16 Loratadine 10 mg PO DAILY PRN 09/10/16 Amitriptyline HCl [Elavil] 25 mg PO BEDTIME 03/08/17 Cyclobenzaprine HCl [Flexeril] 5 mg PO TID PRN 03/08/17 Lovastatin 20 mg PO DAILY 03/08/17 Benzonatate Perles [Tessalon Perles] 200 mg PO TID #30 cap 04/05/17 Amoxicillin 875 mg PO BID #20 tab 01/23/18 Additional Instructions: Sinus irrigation BID, use home nebulizer/inhaler TID until resolution, stop smoking. Return to ER for shortness of breath, chest pain.
== END 2018-01-23 16:55 | disposition home or self-care (01) ==
LOC: ER 16:18
DX: J01.00 Acute maxillary sinusitis, unspecified (principal); I10 Essential (primary) hypertension; J44.9 Chronic obstructive pulmonary disease, unspecified; E11.9 Type 2 diabetes mellitus without complications; K21.9 Gastro-esophageal reflux disease without esophagitis; F17.210 Nicotine dependence, cigarettes, uncomplicated; Z88.8 Allergy status to other drugs, medicaments and biological substances; Z79.82 Long term (current) use of aspirin; Z79.899 Other long term (current) drug therapy; Z79.84 Long term (current) use of oral hypoglycemic drugs; Z85.118 Personal history of other malignant neoplasm of bronchus and lung; Z85.44 Personal history of malignant neoplasm of other female genital organs

== ENCOUNTER → 2018-11-24 | Outpatient (CLI) | payer MEDICARE | LOC: LAB.O 07:09 | PROVIDERS: ATTEND Nurse Practitioner Family | DX: E11.65 Type 2 diabetes mellitus with hyperglycemia (principal); I10 Essential (primary) hypertension; E78.2 Mixed hyperlipidemia ==

== ENCOUNTER 2019-01-23 19:15 | Emergency (ER) | payer MEDICARE ==
--- NOTE | 2019-01-23 20:12 | ED.PDOC ---
History of Present Illness - General Chief Complaint: ENT Problem Time Seen by Provider: 01/23/19 19:49 - History of Present Illness Initial Comments: c/o sore throat since few days : getting worse associated with L earache Timing/Duration: gradual Severity: moderate Improving Factors: nothing Worsening Factors: nothing Associated Symptoms: sore throat Allergies/Adverse Reactions: Allergies Gabapentin [From Neurontin] Allergy (Verified 04/05/17 20:56) Rash Home Medications: Ambulatory Orders Aspirin [Aspirin Adult Low Dose] 81 mg PO DAILY 11/12/15 Citalopram Hydrobromide 40 mg PO DAILY 11/12/15 Lisinopril 5 mg PO DAILY 11/12/15 metFORMIN HCL [Glucophage] 250 mg PO BID 11/12/15 Hydrochlorothiazide 12.5 mg PO DAILY 09/10/16 Loratadine 10 mg PO DAILY PRN 09/10/16 Amitriptyline HCl [Elavil] 25 mg PO BEDTIME 03/08/17 Cyclobenzaprine HCl [Flexeril] 5 mg PO TID PRN 03/08/17 Amoxicillin 875 mg PO BID #20 tab 01/23/18 Amoxicillin 500 mg PO TID #30 tab 01/23/19 Review of Systems - Review of Systems Constitutional: States: no symptoms reported EENTM: States: see HPI Respiratory: States: no symptoms reported Cardiology: States: no symptoms reported Gastrointestinal/Abdominal: States: no symptoms reported Genitourinary: States: no symptoms reported Musculoskeletal: States: no symptoms reported Skin: States: no symptoms reported Neurological: States: no symptoms reported Endocrine: States: no symptoms reported Hematologic/Lymphatic: States: no symptoms reported Past Medical History (General) - Patient Medical History Hx Seizures: No Hx Stroke: No Hx Dementia: No Hx Asthma: Yes Hx of COPD: No Hx Cardiac Disorders: No Hx Congestive Heart Failure: No Hx Pacemaker: No Hx Hypertension: Yes Hx Thyroid Disease: No Hx Diabetes: Yes Hx Gastroesophageal Reflux: Yes Hx Renal Disease: No Hx Cancer: Yes - vagina/lungs Hx of HIV: No Hx Hepatitis C: No Hx MRSA: No - Vaccination History Hx Tetanus, Diphtheria Vaccination: Yes Hx Influenza Vaccination: No Hx Pneumococcal Vaccination: Yes - Social History Hx Tobacco Use: Yes Hx Chewing Tobacco Use: No Hx Alcohol Use: No Hx Substance Use: No Hx Substance Use Treatment: No Hx Depression: No Hx Physical Abuse: No Hx Emotional Abuse: No Hx Suspected Abuse: No - Female History Patient : No Family Medical History - Family History Mother Family History: No Known Living Status: Still Living Hx Family Hypertension: Yes Hx Cardiac Disease: Yes Hx Family Cancer: Yes - rectal Physical Exam - Physical Exam General Appearance: Alert, Comfortable Eye Exam: bilateral normal Ear Exam: bilateral ear: auricle normal, canal normal, TM normal Nasal Exam: normal inspection Throat Exam: normal mouth inspection, pharynx tenderness, tonsillar swelling - erythematous tonsils and pharynx Neck: non-tender, full range of motion, supple, normal inspection Cardiovascular/Respiratory: regular rate, rhythm, no M/R/G 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 Copy, Patient Portal Self Enrollment Activity: increase activity as tolerated, walking as tolerated Referrals: Pablo Ramirez MD [Primary Care Provider] - 1-2 Weeks Prescriptions: Amoxicillin 500 mg PO TID #30 tab Home Medications: Ambulatory Orders Aspirin [Aspirin Adult Low Dose] 81 mg PO DAILY 11/12/15 Citalopram Hydrobromide 40 mg PO DAILY 11/12/15 Lisinopril 5 mg PO DAILY 11/12/15 metFORMIN HCL [Glucophage] 250 mg PO BID 11/12/15 Hydrochlorothiazide 12.5 mg PO DAILY 09/10/16 Loratadine 10 mg PO DAILY PRN 09/10/16 Amitriptyline HCl [Elavil] 25 mg PO BEDTIME 03/08/17 Cyclobenzaprine HCl [Flexeril] 5 mg PO TID PRN 03/08/17 Amoxicillin 875 mg PO BID #20 tab 01/23/18 Amoxicillin 500 mg PO TID #30 tab 01/23/19
[2019-01-23 20:13] VITALS: BP 130/88; TEMP 98.3; O2SAT 99
[2019-01-23] MEDS ORDERED: AMOXICILLIN 500 MG CAP PO ONE (20:22)
[2019-01-23] MEDS ORDERED: AMOXICILLIN 500 MG CAP ONE (20:23)
== END 2019-01-23 20:50 | disposition home or self-care (01) ==
LOC: ER 19:15
DX: J03.90 Acute tonsillitis, unspecified (principal); H92.02 Otalgia, left ear; J45.909 Unspecified asthma, uncomplicated; I10 Essential (primary) hypertension; E11.9 Type 2 diabetes mellitus without complications; K21.9 Gastro-esophageal reflux disease without esophagitis; Z87.891 Personal history of nicotine dependence; Z85.118 Personal history of other malignant neoplasm of bronchus and lung; Z85.44 Personal history of malignant neoplasm of other female genital organs; Z79.82 Long term (current) use of aspirin; Z79.899 Other long term (current) drug therapy; Z79.84 Long term (current) use of oral hypoglycemic drugs; Z88.8 Allergy status to other drugs, medicaments and biological substances

== ENCOUNTER → 2020-01-31 | Outpatient (CLI) | payer MEDICARE | LOC: YCFC.O 09:32 | PROVIDERS: ATTEND Family Medicine | DX: I10 Essential (primary) hypertension (principal); E78.2 Mixed hyperlipidemia; E11.9 Type 2 diabetes mellitus without complications ==